=== PATIENT | male | born 1970 | race Caucasian/White ===

== ENCOUNTER 2019-03-05 16:00 | Emergency (ER) | payer OTHER, SELFPAY ==
[2019-03-05 16:10] VITALS: BP 127/81; PULSE 114; RESP 18; TEMP 36.7; O2SAT 95; BMI 24.4
--- NOTE | 2019-03-05 16:42 | PC.NURSE ---
pt refusing to put on hospital scrubs, left pt with underware. pt is anxious, agitated. pt's mom at bedside trying to put blanket on, pt yelling at mom i dont want that on me pt requesting sprite.
--- NOTE | 2019-03-05 16:51 | ED.PSYCH ---
HPI - Psych <Hawa Beltre DO - Last Filed: 03/06/19 10:52> General Chief Complaint: Psychiatric Symptoms Stated Complaint: phsychotic episode Time Seen by Provider: 03/05/19 16:44 Source: patient and family Mode of arrival: ambulatory Limitations: no limitations History of Present Illness HPI Narrative: Patient is a 48-year-old male presenting with his mother with history of bipolar and alcoholism. He was in correction 2 weeks ago and now [place] where his medication was adjusted. He was on Lamictal 125 mg however in correction they changed it to 25 mg. He was homeless for 2 weeks after he was released from correction, at which point he rode his motorcycle from there to his mother's house. He has been there for less than 1 week. He has continued to drink he has gone to multiple AA meeting did try to harm himself on by cutting his left wrist a couple weeks ago. She states that he has made threats to kill the coughs and kill her ex 's whom are in different states. She states that he is extremely depressed, and feels that he may harm himself more than he would harm anyone else. He actively denies any thoughts of suicide or homicide. Not sure why he is in the emergency department. Has no insight to his disease denies feeling depressed. He continues to drink he drinks vodka today. He had wine bottles underneath his bed at his mother's house. complaint: feels depressed and altered mental status Related Data Home Medications Medication Instructions Recorded Confirmed lamotrigine 1 tab PO DAILY 03/05/19 03/05/19 Allergies Allergy/AdvReac Type Severity Reaction Status Date / Time No Known Drug Allergies Allergy Verified 03/05/19 16:23 Review of Systems <Hawa Beltre DO - Last Filed: 03/06/19 10:52> Review of Systems ROS Unobtainable: All systems reviewed & are unremarkable except as noted in HPI and below Constitutional Denies body ache(s) and Reports poor appetite Eyes Denies blurry vision Cardiovascular Denies chest pain and Denies lightheadedness Gastrointestinal Gastrointestinal: Denies abdominal pain, Denies nausea and Denies vomiting Integumentary/Breasts Denies pruritus, Denies erythema, Denies rash and Reports wounds (healed left wrist) PFS <Hawa Beltre DO - Last Filed: 03/06/19 10:52> Medical History Bipolar 1 disorder (Acute) Social History Smoking Status: Current every day smoker Social History Smoking Status: Current every day smoker Exam <Hawa Beltre DO - Last Filed: 03/06/19 10:52> Initial Vital Signs Initial Vital Signs: Vital Signs Temperature 98.1 F 03/05/19 16:10 Pulse Rate 114 H 03/05/19 16:10 Respiratory Rate 18 03/05/19 16:10 Blood Pressure 127/81 03/05/19 16:10 Pulse Oximetry 95 03/05/19 16:10 GENERAL: Alert male only wearing his underwear all clothes have been removed from him single agitated HEENT: Head atraumatic,EOMI, pupils reactive, face symmetric, [moist] mucous membranes CARDIOVASCULAR: Regular rate and rhythm without murmurs, rubs or gallops. RESPIRATORY: Breath sounds equal bilaterally, no wheezes rales or rhonchi. ABDOMEN: Soft, nontender. Normoactive bowel sounds all 4 quadrants. No guarding or rebound. EXTREMITIES: Normal range of motion, no clubbing or edema. Neurovascularly intact NEUROLOGICAL: Alert and oriented x4. SKIN: Warm, dry, no laceration, no petechiae, no rashes or lesions. Psych Appearance: disheveled Speech and Movement: agitated and speech clear Mood: dysthymic mood Affect: anxious affect Thought Process: confabulating Judgment: poor <Dony Robbins DO - Last Filed: 03/06/19 00:47> Initial Vital Signs Initial Vital Signs: Vital Signs Temperature 98.1 F 03/05/19 16:10 Pulse Rate 114 H 03/05/19 16:10 Respiratory Rate 18 03/05/19 16:10 Blood Pressure 127/81 03/05/19 16:10 Pulse Oximetry 95 03/05/19 16:10 Course <Hawa Beltre DO - Last Filed: 03/06/19 10:52> Orders Ordered: Discontinued Medications Haloperidol (Haldol) 5 mg IM NOW ONE Stop: 03/05/19 17:09 Last Admin: 03/05/19 17:14 Dose: 5 mg Lorazepam (Ativan) 1 mg PO NOW ONE Stop: 03/05/19 20:27 Last Admin: 03/05/19 20:36 Dose: 1 mg Vital Signs - 8 hr 03/05/19 18:10 03/05/19 23:25 Temperature 97 F L Pulse Rate 99 H 82 Respiratory Rate 15 20 Blood Pressure [Left Arm] 111/62 127/46 L Pulse Oximetry 100 <Dony Robbins DO - Last Filed: 03/06/19 00:47> Orders Ordered: Discontinued Medications Haloperidol (Haldol) 5 mg IM NOW ONE Stop: 03/05/19 17:09 Last Admin: 03/05/19 17:14 Dose: 5 mg Lorazepam (Ativan) 1 mg PO NOW ONE Stop: 03/05/19 20:27 Last Admin: 03/05/19 20:36 Dose: 1 mg Vital Signs - 8 hr 03/05/19 18:10 03/05/19 23:25 Temperature 97 F L Pulse Rate 99 H 82 Respiratory Rate 15 20 Blood Pressure [Left Arm] 111/62 127/46 L Pulse Oximetry 100 MDM - Psych <Hawa Beltre DO - Last Filed: 03/06/19 10:52> Lab Data Attestation: I reviewed the patient's lab results. Result diagrams: 03/05/19 15:26 03/05/19 15:26 Lab Results 03/05/19 03/05/19 03/05/19 Range/Units 15:26 15:26 15:26 WBC 6.0 (4.5-11.0) X10^3/uL RBC 4.44 L (4.5-5.9) X10^6/uL Hgb 14.3 (13.5-17.5) g/dL Hct 42.8 (41-53) % MCV 96.5 (80-100) fL MCH 32.3 (26-34) PG MCHC 33.4 (30-36) % RDW 14.7 (11.6-14.8) % Plt Count 456 H (150-400) X10^3/uL Neut % (Auto) 56.3 (50-75) % Lymph % (Auto) 32.3 (25-40) % Giles % (Auto) 7.2 (3-14) % Eos % (Auto) 2.8 (2-4) % Baso % (Auto) 1.4 (0-2) % Neut # (Auto) 3400 (0513-2622) /uL Lymph # (Auto) 2000 (3503-0174) /uL Giles # (Auto) 400 (0-900) /uL Eos # (Auto) 200 (0-450) /uL Baso # (Auto) 100 (0-100) /uL Sodium 142 (137-145) mmol/L Potassium 3.8 (3.4-5.1) mmol/L Chloride 106 (98-107) mmol/L Carbon Dioxide 25 (22-32) mmol/L BUN 16 (9-20) mg/dL Creatinine 0.90 (0.66-1.25) mg/dL Estimated GFR > 60.0 (>60) mL/min BUN/Creatinine Ratio 17.8 (6-22) Glucose 90 (70-100) mg/dL Calcium 9.1 (8.4-10.2) mg/dL Total Bilirubin 0.1 L (0.2-1.3) mg/dL AST 36 (17-59) IU/L ALT 53 (21-72) IU/L Alkaline Phosphatase 100 (38-126) U/L Total Protein 7.1 (6.3-8.2) g/dL Albumin 4.2 (3.5-5.0) g/dL Globulin 2.9 (1.7-4.1) g/dL Albumin/Globulin Ratio 1.4 (1.0-2.8) TSH 1.60 (0.47-4.68) uIU/mL Urine Color Urine Appearance Urine pH (4.5-8.0) Ur Specific [place] (1.000-1.035) Urine Protein (Negative) Urine Glucose (UA) (Negative) g/dL Urine Ketones (NEGATIVE) Urine Occult Blood (Negative) Urine Nitrate (Negative) Urine Bilirubin (NEGATIVE) Urine Urobilinogen (0.2) E.U./dL Ur Leukocyte Esterase (NEGATIVE) Urine Opiates Screen (Negative) Ur Oxycodone Screen (Negative) Urine Methadone Screen (Negative) Ur Barbiturates Screen (Negative) U Tricyclic Antidepress (Negative) Ur Phencyclidine Scrn (Negative) Ur Amphetamines Screen (Negative) U Methamphetamines Scrn (Negative) Ur MDMA Scrn (Ecstasy) (Negative) U Benzodiazepines Scrn (Negative) Urine Cocaine Screen (Negative) U Marijuana (THC) Screen (Negative) Ethyl Alcohol 122 mg/dL 03/05/19 03/05/19 03/05/19 Range/Units 16:35 16:35 18:54 WBC (4.5-11.0) X10^3/uL RBC (4.5-5.9) X10^6/uL Hgb (13.5-17.5) g/dL Hct (41-53) % MCV (80-100) fL MCH (26-34) PG MCHC (30-36) % RDW (11.6-14.8) % Plt Count (150-400) X10^3/uL Neut % (Auto) (50-75) % Lymph % (Auto) (25-40) % Giles % (Auto) (3-14) % Eos % (Auto) (2-4) % Baso % (Auto) (0-2) % Neut # (Auto) (6233-8496) /uL Lymph # (Auto) (7050-0171) /uL Giles # (Auto) (0-900) /uL Eos # (Auto) (0-450) /uL Baso # (Auto) (0-100) /uL Sodium (137-145) mmol/L Potassium (3.4-5.1) mmol/L Chloride (98-107) mmol/L Carbon Dioxide (22-32) mmol/L BUN (9-20) mg/dL Creatinine (0.66-1.25) mg/dL Estimated GFR (>60) mL/min BUN/Creatinine Ratio (6-22) Glucose (70-100) mg/dL Calcium (8.4-10.2) mg/dL Total Bilirubin (0.2-1.3) mg/dL AST (17-59) IU/L ALT (21-72) IU/L Alkaline Phosphatase (38-126) U/L Total Protein (6.3-8.2) g/dL Albumin (3.5-5.0) g/dL Globulin (1.7-4.1) g/dL Albumin/Globulin Ratio (1.0-2.8) TSH (0.47-4.68) uIU/mL Urine Color Yellow Urine Appearance Clear Urine pH 5.0 (4.5-8.0) Ur Specific [place] >=1.030 H (1.000-1.035) Urine Protein Negative (Negative) Urine Glucose (UA) Negative (Negative) g/dL Urine Ketones Negative (NEGATIVE) Urine Occult Blood Trace-intact (Negative) Urine Nitrate Negative (Negative) Urine Bilirubin Negative (NEGATIVE) Urine Urobilinogen 0.2 (0.2) E.U./dL Ur Leukocyte Esterase Negative (NEGATIVE) Urine Opiates Screen Negative (Negative) Ur Oxycodone Screen Negative (Negative) Urine Methadone Screen Negative (Negative) Ur Barbiturates Screen Negative (Negative) U Tricyclic Antidepress Negative (Negative) Ur Phencyclidine Scrn Negative (Negative) Ur Amphetamines Screen Negative (Negative) U Methamphetamines Scrn Negative (Negative) Ur MDMA Scrn (Ecstasy) Negative (Negative) U Benzodiazepines Scrn Negative (Negative) Urine Cocaine Screen Negative (Negative) U Marijuana (THC) Screen Positive H (Negative) Ethyl Alcohol 67 mg/dL MDM Narrative Medical decision making narrative: Patient immediately asking his mother have he can have a chimmey chonga and go home. His mother has voiced grave concern for him feels like he is depressed. 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 At this time I feel like patient is involuntary not able to make decisions on his own. <Dony Robbins, DO - Last Filed: 03/06/19 00:47> Lab Data Lab Results 03/05/19 03/05/19 03/05/19 Range/Units 15:26 15:26 15:26 WBC 6.0 (4.5-11.0) X10^3/uL RBC 4.44 L (4.5-5.9) X10^6/uL Hgb 14.3 (13.5-17.5) g/dL Hct 42.8 (41-53) % MCV 96.5 (80-100) fL MCH 32.3 (26-34) PG MCHC 33.4 (30-36) % RDW 14.7 (11.6-14.8) % Plt Count 456 H (150-400) X10^3/uL Neut % (Auto) 56.3 (50-75) % Lymph % (Auto) 32.3 (25-40) % Giles % (Auto) 7.2 (3-14) % Eos % (Auto) 2.8 (2-4) % Baso % (Auto) 1.4 (0-2) % Neut # (Auto) 3400 (5019-2713) /uL Lymph # (Auto) 2000 (6663-0618) /uL Giles # (Auto) 400 (0-900) /uL Eos # (Auto) 200 (0-450) /uL Baso # (Auto) 100 (0-100) /uL Sodium 142 (137-145) mmol/L Potassium 3.8 (3.4-5.1) mmol/L Chloride 106 (98-107) mmol/L Carbon Dioxide 25 (22-32) mmol/L BUN 16 (9-20) mg/dL Creatinine 0.90 (0.66-1.25) mg/dL Estimated GFR > 60.0 (>60) mL/min BUN/Creatinine Ratio 17.8 (6-22) Glucose 90 (70-100) mg/dL Calcium 9.1 (8.4-10.2) mg/dL Total Bilirubin 0.1 L (0.2-1.3) mg/dL AST 36 (17-59) IU/L ALT 53 (21-72) IU/L Alkaline Phosphatase 100 (38-126) U/L Total Protein 7.1 (6.3-8.2) g/dL Albumin 4.2 (3.5-5.0) g/dL Globulin 2.9 (1.7-4.1) g/dL Albumin/Globulin Ratio 1.4 (1.0-2.8) TSH 1.60 (0.47-4.68) uIU/mL Urine Color Urine Appearance Urine pH (4.5-8.0) Ur Specific [place] (1.000-1.035) Urine Protein (Negative) Urine Glucose (UA) (Negative) g/dL Urine Ketones (NEGATIVE) Urine Occult Blood (Negative) Urine Nitrate (Negative) Urine Bilirubin (NEGATIVE) Urine Urobilinogen (0.2) E.U./dL Ur Leukocyte Esterase (NEGATIVE) Urine Opiates Screen (Negative) Ur Oxycodone Screen (Negative) Urine Methadone Screen (Negative) Ur Barbiturates Screen (Negative) U Tricyclic Antidepress (Negative) Ur Phencyclidine Scrn (Negative) Ur Amphetamines Screen (Negative) U Methamphetamines Scrn (Negative) Ur MDMA Scrn (Ecstasy) (Negative) U Benzodiazepines Scrn (Negative) Urine Cocaine Screen (Negative) U Marijuana (THC) Screen (Negative) Ethyl Alcohol 122 mg/dL 03/05/19 03/05/19 03/05/19 Range/Units 16:35 16:35 18:54 WBC (4.5-11.0) X10^3/uL RBC (4.5-5.9) X10^6/uL Hgb (13.5-17.5) g/dL Hct (41-53) % MCV (80-100) fL MCH (26-34) PG MCHC (30-36) % RDW (11.6-14.8) % Plt Count (150-400) X10^3/uL Neut % (Auto) (50-75) % Lymph % (Auto) (25-40) % Giles % (Auto) (3-14) % Eos % (Auto) (2-4) % Baso % (Auto) (0-2) % Neut # (Auto) (0596-7049) /uL Lymph # (Auto) (8066-3997) /uL Giles # (Auto) (0-900) /uL Eos # (Auto) (0-450) /uL Baso # (Auto) (0-100) /uL Sodium (137-145) mmol/L Potassium (3.4-5.1) mmol/L Chloride (98-107) mmol/L Carbon Dioxide (22-32) mmol/L BUN (9-20) mg/dL Creatinine (0.66-1.25) mg/dL Estimated GFR (>60) mL/min BUN/Creatinine Ratio (6-22) Glucose (70-100) mg/dL Calcium (8.4-10.2) mg/dL Total Bilirubin (0.2-1.3) mg/dL AST (17-59) IU/L ALT (21-72) IU/L Alkaline Phosphatase (38-126) U/L Total Protein (6.3-8.2) g/dL Albumin (3.5-5.0) g/dL Globulin (1.7-4.1) g/dL Albumin/Globulin Ratio (1.0-2.8) TSH (0.47-4.68) uIU/mL Urine Color Yellow Urine Appearance Clear Urine pH 5.0 (4.5-8.0) Ur Specific [place] >=1.030 H (1.000-1.035) Urine Protein Negative (Negative) Urine Glucose (UA) Negative (Negative) g/dL Urine Ketones Negative (NEGATIVE) Urine Occult Blood Trace-intact (Negative) Urine Nitrate Negative (Negative) Urine Bilirubin Negative (NEGATIVE) Urine Urobilinogen 0.2 (0.2) E.U./dL Ur Leukocyte Esterase Negative (NEGATIVE) Urine Opiates Screen Negative (Negative) Ur Oxycodone Screen Negative (Negative) Urine Methadone Screen Negative (Negative) Ur Barbiturates Screen Negative (Negative) U Tricyclic Antidepress Negative (Negative) Ur Phencyclidine Scrn Negative (Negative) Ur Amphetamines Screen Negative (Negative) U Methamphetamines Scrn Negative (Negative) Ur MDMA Scrn (Ecstasy) Negative (Negative) U Benzodiazepines Scrn Negative (Negative) Urine Cocaine Screen Negative (Negative) U Marijuana (THC) Screen Positive H (Negative) Ethyl Alcohol 67 mg/dL MDM Narrative Medical decision making narrative: Received turned over from day provider. I performed my own history and physical exam and also reviewed the patient's note and lab reports. He is medically cleared. His alcohol level is less than the legal limit. He has been calm here in the emergency department however a 1 point became a little anxious so was given Ativan. Upon my evaluation the patient was alert and oriented x3. he stated that he was not currently suicidal. The patient was evaluated by PCR and was determined to not have the findings necessary for a CHEPE. The DCR stated that she was going to contact the patient's mother however the DCR left without final confirmation of this. The note stated that we were to give the patient the a phone number which was done. We called to confirm that a [facility] appointment was scheduled for tomorrow which it was. The patient was also given resources regarding mental health counseling. Mother came to the emergency department to pick the patient up. Discharge Plan Departure Patient Disposition: Home Clinical Impression: Alcohol intoxication Qualifiers: Complication of substance-induced condition: with unspecified complication Qualified Code(s): F10.929 - Alcohol use, unspecified with intoxication, unspecified Discharge Date/Time: 03/06/19 01:01 Interventions: ED Discharge Assessment Last Done: 03/06/19 00:57 Instructions: Alcohol Use Disorder, DI for Suicidal Ideation-Adult Activity Restrictions/Additional Instructions: No driving for the next 24 hours or in the future if you partake in intoxicating substances. You can call the [facility] at [phone] if you find yourself in need of help. He can also return to the emergency department at any time. You will be receiving phone call from what we call the [facility] team on Wednesday to follow up and also to establish a same-day appointment. Please use the other and resources you were given as needed. Contact her primary care doctor for follow-up. Prescriptions: No Action lamotrigine 100 mg Tablet 1 tab PO DAILY RF: 0
[2019-03-05] MEDS: HALOPERIDOL 5 MG/ML VIAL IM (17:14)
--- NOTE | 2019-03-05 17:14 | ED_ITS ---
HPI - Psych <Hawa Beltre DO - Last Filed: 03/06/19 10:52> General Chief Complaint: Psychiatric Symptoms Stated Complaint: phsychotic episode Time Seen by Provider: 03/05/19 16:44 Source: patient and family Mode of arrival: ambulatory Limitations: no limitations History of Present Illness HPI Narrative: Patient is a 48-year-old male presenting with his mother with history of bipolar and alcoholism. He was in retirement 2 weeks ago and now [place] where his medication was adjusted. He was on Lamictal 125 mg however in retirement they changed it to 25 mg. He was homeless for 2 weeks after he was released from retirement, at which point he rode his motorcycle from there to his mother's house. He has been there for less than 1 week. He has continued to drink he has gone to multiple AA meeting did try to harm himself on by cutting his left wrist a couple weeks ago. She states that he has made threats to kill the coughs and kill her ex 's whom are in different states. She states that he is extremely depressed, and feels that he may harm himself more than he would harm anyone else. He actively denies any thoughts of suicide or homicide. Not sure why he is in the emergency department. Has no insight to his disease denies feeling depressed. He continues to drink he drinks vodka today. He had wine bottles underneath his bed at his mother's house. complaint: feels depressed and altered mental status Related Data Home Medications Medication Instructions Recorded Confirmed lamotrigine 1 tab PO DAILY 03/05/19 03/05/19 Allergies Allergy/AdvReac Type Severity Reaction Status Date / Time No Known Drug Allergies Allergy Verified 03/05/19 16:23 Review of Systems <Hawa Beltre DO - Last Filed: 03/06/19 10:52> Review of Systems ROS Unobtainable: All systems reviewed & are unremarkable except as noted in HPI and below Constitutional Denies body ache(s) and Reports poor appetite Eyes Denies blurry vision Cardiovascular Denies chest pain and Denies lightheadedness Gastrointestinal Gastrointestinal: Denies abdominal pain, Denies nausea and Denies vomiting Integumentary/Breasts Denies pruritus, Denies erythema, Denies rash and Reports wounds (healed left wrist) PFS <Hawa Beltre DO - Last Filed: 03/06/19 10:52> Medical History Bipolar 1 disorder (Acute) Social History Smoking Status: Current every day smoker Social History Smoking Status: Current every day smoker Exam <Hawa Beltre DO - Last Filed: 03/06/19 10:52> Initial Vital Signs Initial Vital Signs: Vital Signs Temperature 98.1 F 03/05/19 16:10 Pulse Rate 114 H 03/05/19 16:10 Respiratory Rate 18 03/05/19 16:10 Blood Pressure 127/81 03/05/19 16:10 Pulse Oximetry 95 03/05/19 16:10 GENERAL: Alert male only wearing his underwear all clothes have been removed from him single agitated HEENT: Head atraumatic,EOMI, pupils reactive, face symmetric, [moist] mucous membranes CARDIOVASCULAR: Regular rate and rhythm without murmurs, rubs or gallops. RESPIRATORY: Breath sounds equal bilaterally, no wheezes rales or rhonchi. ABDOMEN: Soft, nontender. Normoactive bowel sounds all 4 quadrants. No guarding or rebound. EXTREMITIES: Normal range of motion, no clubbing or edema. Neurovascularly intact NEUROLOGICAL: Alert and oriented x4. SKIN: Warm, dry, no laceration, no petechiae, no rashes or lesions. Psych Appearance: disheveled Speech and Movement: agitated and speech clear Mood: dysthymic mood Affect: anxious affect Thought Process: confabulating Judgment: poor <Dony Robbins DO - Last Filed: 03/06/19 00:47> Initial Vital Signs Initial Vital Signs: Vital Signs Temperature 98.1 F 03/05/19 16:10 Pulse Rate 114 H 03/05/19 16:10 Respiratory Rate 18 03/05/19 16:10 Blood Pressure 127/81 03/05/19 16:10 Pulse Oximetry 95 03/05/19 16:10 Course <Hawa Beltre DO - Last Filed: 03/06/19 10:52> Orders Ordered: Discontinued Medications Haloperidol (Haldol) 5 mg IM NOW ONE Stop: 03/05/19 17:09 Last Admin: 03/05/19 17:14 Dose: 5 mg Lorazepam (Ativan) 1 mg PO NOW ONE Stop: 03/05/19 20:27 Last Admin: 03/05/19 20:36 Dose: 1 mg Vital Signs - 8 hr 03/05/19 18:10 03/05/19 23:25 Temperature 97 F L Pulse Rate 99 H 82 Respiratory Rate 15 20 Blood Pressure [Left Arm] 111/62 127/46 L Pulse Oximetry 100 <Dony Robbins DO - Last Filed: 03/06/19 00:47> Orders Ordered: Discontinued Medications Haloperidol (Haldol) 5 mg IM NOW ONE Stop: 03/05/19 17:09 Last Admin: 03/05/19 17:14 Dose: 5 mg Lorazepam (Ativan) 1 mg PO NOW ONE Stop: 03/05/19 20:27 Last Admin: 03/05/19 20:36 Dose: 1 mg Vital Signs - 8 hr 03/05/19 18:10 03/05/19 23:25 Temperature 97 F L Pulse Rate 99 H 82 Respiratory Rate 15 20 Blood Pressure [Left Arm] 111/62 127/46 L Pulse Oximetry 100 MDM - Psych <Hawa Beltre DO - Last Filed: 03/06/19 10:52> Lab Data Attestation: I reviewed the patient's lab results. Result diagrams: 03/05/19 15:26 03/05/19 15:26 Lab Results 03/05/19 03/05/19 03/05/19 Range/Units 15:26 15:26 15:26 WBC 6.0 (4.5-11.0) X10^3/uL RBC 4.44 L (4.5-5.9) X10^6/uL Hgb 14.3 (13.5-17.5) g/dL Hct 42.8 (41-53) % MCV 96.5 (80-100) fL MCH 32.3 (26-34) PG MCHC 33.4 (30-36) % RDW 14.7 (11.6-14.8) % Plt Count 456 H (150-400) X10^3/uL Neut % (Auto) 56.3 (50-75) % Lymph % (Auto) 32.3 (25-40) % Hart % (Auto) 7.2 (3-14) % Eos % (Auto) 2.8 (2-4) % Baso % (Auto) 1.4 (0-2) % Neut # (Auto) 3400 (8803-1754) /uL Lymph # (Auto) 2000 (5524-9301) /uL Hart # (Auto) 400 (0-900) /uL Eos # (Auto) 200 (0-450) /uL Baso # (Auto) 100 (0-100) /uL Sodium 142 (137-145) mmol/L Potassium 3.8 (3.4-5.1) mmol/L Chloride 106 (98-107) mmol/L Carbon Dioxide 25 (22-32) mmol/L BUN 16 (9-20) mg/dL Creatinine 0.90 (0.66-1.25) mg/dL Estimated GFR > 60.0 (>60) mL/min BUN/Creatinine Ratio 17.8 (6-22) Glucose 90 (70-100) mg/dL Calcium 9.1 (8.4-10.2) mg/dL Total Bilirubin 0.1 L (0.2-1.3) mg/dL AST 36 (17-59) IU/L ALT 53 (21-72) IU/L Alkaline Phosphatase 100 (38-126) U/L Total Protein 7.1 (6.3-8.2) g/dL Albumin 4.2 (3.5-5.0) g/dL Globulin 2.9 (1.7-4.1) g/dL Albumin/Globulin Ratio 1.4 (1.0-2.8) TSH 1.60 (0.47-4.68) uIU/mL Urine Color Urine Appearance Urine pH (4.5-8.0) Ur Specific [place] (1.000-1.035) Urine Protein (Negative) Urine Glucose (UA) (Negative) g/dL Urine Ketones (NEGATIVE) Urine Occult Blood (Negative) Urine Nitrate (Negative) Urine Bilirubin (NEGATIVE) Urine Urobilinogen (0.2) E.U./dL Ur Leukocyte Esterase (NEGATIVE) Urine Opiates Screen (Negative) Ur Oxycodone Screen (Negative) Urine Methadone Screen (Negative) Ur Barbiturates Screen (Negative) U Tricyclic Antidepress (Negative) Ur Phencyclidine Scrn (Negative) Ur Amphetamines Screen (Negative) U Methamphetamines Scrn (Negative) Ur MDMA Scrn (Ecstasy) (Negative) U Benzodiazepines Scrn (Negative) Urine Cocaine Screen (Negative) U Marijuana (THC) Screen (Negative) Ethyl Alcohol 122 mg/dL 03/05/19 03/05/19 03/05/19 Range/Units 16:35 16:35 18:54 WBC (4.5-11.0) X10^3/uL RBC (4.5-5.9) X10^6/uL Hgb (13.5-17.5) g/dL Hct (41-53) % MCV (80-100) fL MCH (26-34) PG MCHC (30-36) % RDW (11.6-14.8) % Plt Count (150-400) X10^3/uL Neut % (Auto) (50-75) % Lymph % (Auto) (25-40) % Hart % (Auto) (3-14) % Eos % (Auto) (2-4) % Baso % (Auto) (0-2) % Neut # (Auto) (4200-1383) /uL Lymph # (Auto) (4758-3818) /uL Hart # (Auto) (0-900) /uL Eos # (Auto) (0-450) /uL Baso # (Auto) (0-100) /uL Sodium (137-145) mmol/L Potassium (3.4-5.1) mmol/L Chloride (98-107) mmol/L Carbon Dioxide (22-32) mmol/L BUN (9-20) mg/dL Creatinine (0.66-1.25) mg/dL Estimated GFR (>60) mL/min BUN/Creatinine Ratio (6-22) Glucose (70-100) mg/dL Calcium (8.4-10.2) mg/dL Total Bilirubin (0.2-1.3) mg/dL AST (17-59) IU/L ALT (21-72) IU/L Alkaline Phosphatase (38-126) U/L Total Protein (6.3-8.2) g/dL Albumin (3.5-5.0) g/dL Globulin (1.7-4.1) g/dL Albumin/Globulin Ratio (1.0-2.8) TSH (0.47-4.68) uIU/mL Urine Color Yellow Urine Appearance Clear Urine pH 5.0 (4.5-8.0) Ur Specific [place] >=1.030 H (1.000-1.035) Urine Protein Negative (Negative) Urine Glucose (UA) Negative (Negative) g/dL Urine Ketones Negative (NEGATIVE) Urine Occult Blood Trace-intact (Negative) Urine Nitrate Negative (Negative) Urine Bilirubin Negative (NEGATIVE) Urine Urobilinogen 0.2 (0.2) E.U./dL Ur Leukocyte Esterase Negative (NEGATIVE) Urine Opiates Screen Negative (Negative) Ur Oxycodone Screen Negative (Negative) Urine Methadone Screen Negative (Negative) Ur Barbiturates Screen Negative (Negative) U Tricyclic Antidepress Negative (Negative) Ur Phencyclidine Scrn Negative (Negative) Ur Amphetamines Screen Negative (Negative) U Methamphetamines Scrn Negative (Negative) Ur MDMA Scrn (Ecstasy) Negative (Negative) U Benzodiazepines Scrn Negative (Negative) Urine Cocaine Screen Negative (Negative) U Marijuana (THC) Screen Positive H (Negative) Ethyl Alcohol 67 mg/dL MDM Narrative Medical decision making narrative: Patient immediately asking his mother have he can have a chimmey chonga and go home. His mother has voiced grave concern for him feels like he is depressed. Patient signed out to police shift commander provider for further evaluation and treatment. At this time I feel like patient is involuntary not able to make decisions on his own. <Dony Robbins, DO - Last Filed: 03/06/19 00:47> Lab Data Lab Results 03/05/19 03/05/19 03/05/19 Range/Units 15:26 15:26 15:26 WBC 6.0 (4.5-11.0) X10^3/uL RBC 4.44 L (4.5-5.9) X10^6/uL Hgb 14.3 (13.5-17.5) g/dL Hct 42.8 (41-53) % MCV 96.5 (80-100) fL MCH 32.3 (26-34) PG MCHC 33.4 (30-36) % RDW 14.7 (11.6-14.8) % Plt Count 456 H (150-400) X10^3/uL Neut % (Auto) 56.3 (50-75) % Lymph % (Auto) 32.3 (25-40) % Hart % (Auto) 7.2 (3-14) % Eos % (Auto) 2.8 (2-4) % Baso % (Auto) 1.4 (0-2) % Neut # (Auto) 3400 (0327-3363) /uL Lymph # (Auto) 2000 (3232-3947) /uL Hart # (Auto) 400 (0-900) /uL Eos # (Auto) 200 (0-450) /uL Baso # (Auto) 100 (0-100) /uL Sodium 142 (137-145) mmol/L Potassium 3.8 (3.4-5.1) mmol/L Chloride 106 (98-107) mmol/L Carbon Dioxide 25 (22-32) mmol/L BUN 16 (9-20) mg/dL Creatinine 0.90 (0.66-1.25) mg/dL Estimated GFR > 60.0 (>60) mL/min BUN/Creatinine Ratio 17.8 (6-22) Glucose 90 (70-100) mg/dL Calcium 9.1 (8.4-10.2) mg/dL Total Bilirubin 0.1 L (0.2-1.3) mg/dL AST 36 (17-59) IU/L ALT 53 (21-72) IU/L Alkaline Phosphatase 100 (38-126) U/L Total Protein 7.1 (6.3-8.2) g/dL Albumin 4.2 (3.5-5.0) g/dL Globulin 2.9 (1.7-4.1) g/dL Albumin/Globulin Ratio 1.4 (1.0-2.8) TSH 1.60 (0.47-4.68) uIU/mL Urine Color Urine Appearance Urine pH (4.5-8.0) Ur Specific [place] (1.000-1.035) Urine Protein (Negative) Urine Glucose (UA) (Negative) g/dL Urine Ketones (NEGATIVE) Urine Occult Blood (Negative) Urine Nitrate (Negative) Urine Bilirubin (NEGATIVE) Urine Urobilinogen (0.2) E.U./dL Ur Leukocyte Esterase (NEGATIVE) Urine Opiates Screen (Negative) Ur Oxycodone Screen (Negative) Urine Methadone Screen (Negative) Ur Barbiturates Screen (Negative) U Tricyclic Antidepress (Negative) Ur Phencyclidine Scrn (Negative) Ur Amphetamines Screen (Negative) U Methamphetamines Scrn (Negative) Ur MDMA Scrn (Ecstasy) (Negative) U Benzodiazepines Scrn (Negative) Urine Cocaine Screen (Negative) U Marijuana (THC) Screen (Negative) Ethyl Alcohol 122 mg/dL 03/05/19 03/05/19 03/05/19 Range/Units 16:35 16:35 18:54 WBC (4.5-11.0) X10^3/uL RBC (4.5-5.9) X10^6/uL Hgb (13.5-17.5) g/dL Hct (41-53) % MCV (80-100) fL MCH (26-34) PG MCHC (30-36) % RDW (11.6-14.8) % Plt Count (150-400) X10^3/uL Neut % (Auto) (50-75) % Lymph % (Auto) (25-40) % Hart % (Auto) (3-14) % Eos % (Auto) (2-4) % Baso % (Auto) (0-2) % Neut # (Auto) (8395-7211) /uL Lymph # (Auto) (3878-2157) /uL Hart # (Auto) (0-900) /uL Eos # (Auto) (0-450) /uL Baso # (Auto) (0-100) /uL Sodium (137-145) mmol/L Potassium (3.4-5.1) mmol/L Chloride (98-107) mmol/L Carbon Dioxide (22-32) mmol/L BUN (9-20) mg/dL Creatinine (0.66-1.25) mg/dL Estimated GFR (>60) mL/min BUN/Creatinine Ratio (6-22) Glucose (70-100) mg/dL Calcium (8.4-10.2) mg/dL Total Bilirubin (0.2-1.3) mg/dL AST (17-59) IU/L ALT (21-72) IU/L Alkaline Phosphatase (38-126) U/L Total Protein (6.3-8.2) g/dL Albumin (3.5-5.0) g/dL Globulin (1.7-4.1) g/dL Albumin/Globulin Ratio (1.0-2.8) TSH (0.47-4.68) uIU/mL Urine Color Yellow Urine Appearance Clear Urine pH 5.0 (4.5-8.0) Ur Specific [place] >=1.030 H (1.000-1.035) Urine Protein Negative (Negative) Urine Glucose (UA) Negative (Negative) g/dL Urine Ketones Negative (NEGATIVE) Urine Occult Blood Trace-intact (Negative) Urine Nitrate Negative (Negative) Urine Bilirubin Negative (NEGATIVE) Urine Urobilinogen 0.2 (0.2) E.U./dL Ur Leukocyte Esterase Negative (NEGATIVE) Urine Opiates Screen Negative (Negative) Ur Oxycodone Screen Negative (Negative) Urine Methadone Screen Negative (Negative) Ur Barbiturates Screen Negative (Negative) U Tricyclic Antidepress Negative (Negative) Ur Phencyclidine Scrn Negative (Negative) Ur Amphetamines Screen Negative (Negative) U Methamphetamines Scrn Negative (Negative) Ur MDMA Scrn (Ecstasy) Negative (Negative) U Benzodiazepines Scrn Negative (Negative) Urine Cocaine Screen Negative (Negative) U Marijuana (THC) Screen Positive H (Negative) Ethyl Alcohol 67 mg/dL MDM Narrative Medical decision making narrative: Received turned over from day provider. I performed my own history and physical exam and also reviewed the patient's note and lab reports. He is medically cleared. His alcohol level is less than the legal limit. He has been calm here in the emergency department however a 1 point became a little anxious so was given Ativan. Upon my evaluation the patient was alert and oriented x3. he stated that he was not currently suicidal. The patient was evaluated by PCR and was determined to not have the findings necessary for a CHEPE. The DCR stated that she was going to contact the patient's mother however the DCR left without final confirmation of this. The note stated that we were to give the patient the a phone number which was done. We called to confirm that a [facility] appointment was scheduled for tomorrow which it was. The patient was also given resources regarding mental health counseling. Mother came to the emergency department to pick the patient up. Discharge Plan Departure Patient Disposition: Home Clinical Impression: Alcohol intoxication Qualifiers: Complication of substance-induced condition: with unspecified complication Qualified Code(s): F10.929 - Alcohol use, unspecified with intoxication, un specified Discharge Date/Time: 03/06/19 01:01 Interventions: ED Discharge Assessment Last Done: 03/06/19 00:57 Instructions: Alcohol Use Disorder, DI for Suicidal Ideation-Adult Activity Restrictions/Additional Instructions: No driving for the next 24 hours or in the future if you partake in intoxicating substances. You can call the [facility] at [phone] if you find yourself in need of help. He can also return to the emergency department at any time. You will be receiving phone call from what we call the CPIT team on Wednesday to follow up and also to establish a same-day appointment. Please use the other and resources you were given as needed. Contact her primary care doctor for follow-up. Prescriptions: No Action lamotrigine 100 mg Tablet 1 tab PO DAILY RF: 0
--- NOTE | 2019-03-05 17:24 | PC.NURSE ---
pt in bed eating pudding and drinking radha baldemar. Door is open to hallway and lights are on.
[2019-03-05 17:42] LABS: Add Manual Diff / Slide Review NO; Basophils Absolute Auto 100 /uL (0-100); Basophils Percent Auto 1.4 % (0-2); Eosinophils Absolute Auto 200 /uL (0-450); Eosinophils Percent Auto 2.8 % (2-4); Hematocrit 42.8 % (41-53); Hemoglobin 14.3 g/dL (13.5-17.5); Lymphocytes Absolute Auto 2000 /uL (1100-4500); Lymphocytes Percent Auto 32.3 % (25-40); Mean Corpuscular HGB Conc 33.4 % (30-36); Mean Corpuscular Hemoglobin 32.3 PG (26-34); Mean Corpuscular Volume 96.5 fL (80-100); Monocytes Absolute Auto 400 /uL (0-900); Monocytes Percent Auto 7.2 % (3-14); Neutrophils Absolute Auto 3400 /uL (1500-7000); Neutrophils Percent Auto 56.3 % (50-75); Platelet Count 456 X10^3/uL (150-400); Red Blood Cell Count 4.44 X10^6/uL (4.5-5.9); Red Cell Distribution Width 14.7 % (11.6-14.8)
--- NOTE | 2019-03-05 17:44 | PC.NURSE ---
pt got up and put his paper scrubs on then laid down on the bed. Door is open to the hallway and lights are on in room.
[2019-03-05 17:47] LABS: Alanine Aminotransferase 53 IU/L (21-72); Albumin 4.2 g/dL (3.5-5.0); Albumin Globulin Ratio 1.4 (1.0-2.8); Alkaline Phosphatase 100 U/L (38-126); Aspartate Aminotransferase 36 IU/L (17-59); BUN Creatinine Ratio 17.8 (6-22); Bilirubin Total 0.1 mg/dL (0.2-1.3); Blood Urea Nitrogen 16 mg/dL (9-20); Calcium 9.1 mg/dL (8.4-10.2); Carbon Dioxide 25 mmol/L (22-32); Chloride 106 mmol/L (98-107); Estimated Glomerular Filt Rate > 60.0 mL/min (>60); Ethanol (ETOH) 122 mg/dL; Globulin 2.9 g/dL (1.7-4.1); Glucose 90 mg/dL (70-100); HEMOLYSIS < 15 (0-50); Potassium 3.8 mmol/L (3.4-5.1); Sodium 142 mmol/L (137-145); Total Protein 7.1 g/dL (6.3-8.2)
[2019-03-05 17:58] LABS: Urine Amphetamines Negative (Negative); Urine Cocaine Negative (Negative); Urine Methamphetamines Negative (Negative); Urine Morphine/Opi cutoff 2000 Negative (Negative); Urine Tetrahydrocannabinol Positive (Negative)
[2019-03-05 17:59] LABS: Urine Barbiturates Negative (Negative); Urine Benzodiazepines Negative (Negative); Urine MDMA Negative (Negative); Urine Methadone Negative (Negative); Urine Oxycodone Negative (Negative); Urine Phencyclidine Negative (Negative); Urine Tricyclic Antidepressant Negative (Negative)
--- NOTE | 2019-03-05 18:02 | PC.NURSE ---
Gave pt ice water in a paper cup, hes sitting up in bed drinking the water. Door is open to [place] and lights are on.
[2019-03-05 18:10] VITALS: BP 111/62; PULSE 99; RESP 15; O2SAT 100
--- NOTE | 2019-03-05 18:21 | PC.NURSE ---
Pt requested more ice water and got his vital signs.
--- NOTE | 2019-03-05 18:30 | PC.NURSE ---
pt resting on bed, door is open and lights are on
[2019-03-05 18:35] LABS: Appearance Urine UA CLEAR; Bilirubin Urine UA NEGATIVE (NEGATIVE); Color Urine UA YELLOW; Glucose Urine UA NEGATIVE (Negative); Ketones Urine UA NEGATIVE (NEGATIVE); Leukocyte Esterase Urine UA NEGATIVE (NEGATIVE); Nitrite Urine UA NEGATIVE (Negative); Occult Blood Urine UA TRACE-INTACT (Negative); Protein Urine UA NEGATIVE (Negative); Specific Gravity Urine UA >=1.030 (1.000-1.035); Urobilinogen Urine UA 0.2 E.U./dL (0.2)
--- NOTE | 2019-03-05 18:46 | PC.NURSE ---
talked with pt. Door is open to [place] and lights are on.
--- NOTE | 2019-03-05 19:00 | PC.NURSE ---
Nurse gave pt sandwiches, cookie, cheese and radha baldemar. pt is sitting up in bed eating. Door is open to hallway and lights are on.
[2019-03-05 19:10] LABS: Ethanol (ETOH) 67 mg/dL
--- NOTE | 2019-03-05 19:15 | PC.NURSE ---
pt laying on bed, door is open and lights are on
--- NOTE | 2019-03-05 19:35 | PC.NURSE ---
Pt resting and cooperative and compliant.
--- NOTE | 2019-03-05 20:33 | PC.NURSE ---
Pt's agitation was reported to the Doctor and is being addressed by the nurse
[2019-03-05] MEDS: LORazepam 1 MG TABLET PO (20:36)
--- NOTE | 2019-03-05 20:51 | PC.NURSE ---
Nurse gave pt meds. pt is laying down and relaxed. door is open and lights are off so pt can rest.
--- NOTE | 2019-03-05 21:01 | PC.NURSE ---
pt resting on bed, gave him ice water
--- NOTE | 2019-03-05 21:20 | PC.NURSE ---
pt is laying on bed relaxing, door is open and lights are off so pt can rest.
--- NOTE | 2019-03-05 21:31 | PC.NURSE ---
pt resting on bed, door is open to hallway
--- NOTE | 2019-03-05 21:45 | PC.NURSE ---
Pt resting on bed, MITER SAWYER gave pt water, door is open to [facility]
--- NOTE | 2019-03-05 22:00 | PC.NURSE ---
pt resting on bed, door open to hallway
--- NOTE | 2019-03-05 22:16 | PC.NURSE ---
pt up to use bathroom, pt back in bed resting, door open to [place]
--- NOTE | 2019-03-05 22:17 | PC.NURSE ---
[facility] has arrived for eval
--- NOTE | 2019-03-05 22:39 | PC.NURSE ---
DCR in room talking with pt
--- NOTE | 2019-03-05 22:47 | PC.NURSE ---
pt resting on bed, door is open to hallway
--- NOTE | 2019-03-05 23:01 | PC.NURSE ---
pt laying on bed relaxing, door is open to hallway
[2019-03-05 23:25] VITALS: BP 127/46; PULSE 82; RESP 20; TEMP 36.1
--- NOTE | 2019-03-05 23:45 | PC.NURSE ---
Patient sleeping in bed, repositioned onto his left side.
--- NOTE | 2019-03-06 00:30 | PC.NURSE ---
Patient asleep in room, repositioned independently onto his back.
[2019-03-06 00:55] VITALS: BP 125/81; PULSE 76; RESP 18; TEMP 36.3
--- NOTE | 2019-03-06 11:23 | PC.NURSE ---
Mother (Qian) called re: lost glasses. Not in ED patient belongings. [facility] I then found glasses. Message left on Qian's machine (listed next of kin) for her to pickling drum operator. Left at ED registration desk w/ both Qian's and pt's name on them.
== END 2019-03-06 01:01 | disposition home or self-care (01) ==
PROVIDERS: Emergency Medicine; Emergency Provider Emergency Medicine
DX: F10.929 Alcohol use, unspecified with intoxication, unspecified (principal); R41.82 Altered mental status, unspecified; R45.1 Restlessness and agitation; F32.89 Other specified depressive episodes
CPT/HCPCS: 36415; 80053; 80305; 80320; 81003; 84443; 85025; 96372; 99283; 99285; 99291; 99292; J1630

== ENCOUNTER 2019-04-03 21:16 | Emergency (ER) | payer OTHER, MEDICAID, SELFPAY ==
[2019-04-03 21:15] VITALS: BP 108/66; PULSE 80; RESP 14; TEMP 36.6; O2SAT 95; BMI 24.4
--- NOTE | 2019-04-03 21:43 | ED.PSYCH ---
HPI - Psych General Chief Complaint: Psychiatric Symptoms Stated Complaint: Suicidal Ideation Time Seen by Provider: 04/03/19 21:17 Source: patient and police Mode of arrival: ambulatory Limitations: no limitations History of Present Illness HPI Narrative: 48M nonsmoker with history of bipolar and alcoholism presents with Bill AGUIAR for CHEPE after suicidal ideation with plan and means. Patient has longstanding history of bipolar disorder and admittedly has been taking his medications. He lives in [place] but was from his a few months ago and since then has made his way here, to his mother's house. He was seen here in the end of February and was referred to [facility], he had 2 visits to the detox facility and prior to today had been clean for 15 days. His mother left the house for a few hours and he went looking for alcohol and found in the garage. When she returned she found him drunk and he was very upset. He stated he wanted to but was not specific with her. She obviously became upset and called police. Please see their paperwork for the details of their interaction but he apparently told them he wished to kill himself, had tried in the past (as evidenced by healed lacerations on both wrists) and had a knife hiding in his room where he intended to kill himself later tonight. PD searched his room and found a knife. Patient presents under the above-stated circumstances for medical clearance and psychiatric evaluation by [facility]ER[facility] S[facility]NCHEZ complaint: suicidal ideation and feels depressed Onset (ago): hour(s) Duration: constant History of same: Yes Relieving factors: none Exacerbating factors: alcohol Context: recent alcohol abuse and significant life stressor Associated psychiatric symptoms: depression and suicidal ideation Associated symptoms: denies other symptoms Treatments prior to arrival: none If self harm: admits thoughts of self harm and has plan Details of plan: see above Related Data Home Medications Medication Instructions Recorded Confirmed dextroamphetamine-amphetamine 60 mg PO QAM 04/04/19 04/04/19 [Adderall XR] Previous Rx's Medication Instructions Recorded fluoxetine 60 mg tablet 60 mg PO DAILY #30 tab 03/31/19 lamotrigine 100 mg tablet 100 mg PO DAILY #30 tab 03/31/19 Allergies Allergy/AdvReac Type Severity Reaction Status Date / Time No Known Drug Allergies Allergy Verified 04/03/19 21:34 Review of Systems Constitutional Denies chills, Denies fever(s), Denies lethargy and Denies weakness Eyes Denies change in vision, Denies eye discharge, Denies irritation and Denies loss of vision ENT Ears, Nose, Mouth, and Throat: Denies change in voice, Denies neck pain and Denies sore throat Cardiovascular Denies chest pain, Denies irregular heart rhythm, Denies lightheadedness, Denies palpitations, Denies dyspnea, Denies dyspnea on exertion and Denies orthopnea Respiratory Denies cough, Denies dyspnea, Denies dyspnea on exertion and Denies wheezing Gastrointestinal Gastrointestinal: Denies abdominal pain, Denies change in bowel habits, Denies diarrhea, Denies nausea and Denies vomiting Genitourinary Denies hematuria, Denies flank pain, Denies urinary incontinence and Denies urinary urgency Musculoskeletal Denies neck pain Integumentary/Breasts Denies pruritus, Denies erythema, Denies rash and Denies wounds Neurologic Denies confusion, Denies loss of vision and Denies weakness Psychiatric Denies anxiety, Denies confusion, Denies depression, Denies homicidal ideation and Reports suicidal ideation Endocrine Denies palpitations Hematologic/Lymphatic Denies easy bruising Allergic/Immunologic Denies wheezing PFSH Medical History Bipolar 1 disorder (Acute) Social History Smoking Status: Current every day smoker Social History Smoking Status: Current every day smoker Exam Narrative Exam Narrative: GENERAL: This is a well-nourished, well-developed patient, in mild distress. Poor eye contact HEAD: Atraumatic. Normocephalic. No temporal or scalp tenderness. EYES: Pupils equal round and reactive. Extraocular motions intact. No scleral icterus. No injection or drainage. ENT: Nose without bleeding, purulent drainage or septal hematoma. Throat without erythema, tonsillar hypertrophy or exudate. Uvula midline. Airway patent. NECK: Trachea midline. No JVD or lymphadenopathy. Supple, nontender, no meningeal signs. CARDIOVASCULAR: Regular rate and rhythm without murmurs, gallops, or rubs. RESPIRATORY: Clear to auscultation. Breath sounds equal bilaterally. No wheezes, rales, or rhonchi. GASTROINTESTINAL: Abdomen soft, non-tender, nondistended. No hepato-splenomegaly, or palpable masses. No guarding. EXTREMITIES: Healed lacerations on B/L wrists No clubbing, cyanosis, or edema. No joint tenderness, effusion, or edema noted. BACK: Nontender without deformity or crepitance. No flank tenderness. NEURO: AOx3. SKIN: No rash or erythema. 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 She is scared and believes he has every intention of hurting himself badly. She is happy to receive a call from [facility] Orders Ordered: Discontinued Medications Lorazepam (Ativan) 1 mg IM NOW ONE Stop: 04/03/19 21:25 Last Admin: 04/03/19 21:47 Dose: 1 mg Lorazepam (Ativan) 1 mg PO NOW ONE Stop: 04/04/19 07:59 Last Admin: 04/04/19 08:01 Dose: 1 mg Lorazepam (Ativan) 1 mg PO NOW ONE Stop: 04/04/19 11:41 Last Admin: 04/04/19 11:44 Dose: 1 mg Reevaluation(s) Reevaluation #1: patient is speaking clearly and walking with steady gait. He states he no longer wants to hurt himself and just wants to go home. It is my belief, especially after speaking with his mother that he is very likely just telling us what we want to hear. 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 He has a history of suicide attempt and was found to have ideation, plan, and means this evening. It is my intent to have the patient interviewed by [facility] for CHEPE. The patient does not think he needs help, wants no help Vital Signs - 8 hr 04/03/19 21:15 04/04/19 00:23 Temperature 97.8 F Pulse Rate 80 70 Respiratory Rate 14 16 Blood Pressure 108/66 Blood Pressure [Right Arm] 96/59 L Pulse Oximetry 95 93 MDM - Psych Lab Data Result diagrams: 04/03/19 21:45 04/03/19 21:45 Lab Results 04/03/19 04/03/19 04/03/19 Range/Units 21:45 21:45 21:45 WBC 4.7 (4.5-11.0) X10^3/uL RBC 4.35 L (4.5-5.9) X10^6/uL Hgb 14.3 (13.5-17.5) g/dL Hct 42.1 (41-53) % MCV 96.9 (80-100) fL MCH 32.9 (26-34) PG MCHC 33.9 (30-36) % RDW 14.6 (11.6-14.8) % Plt Count 254 (150-400) X10^3/uL Neut % (Auto) 31.4 L (50-75) % Lymph % (Auto) 56.5 H (25-40) % [place] % (Auto) 8.1 (3-14) % Eos % (Auto) 2.6 (2-4) % Baso % (Auto) 1.4 (0-2) % Neut # (Auto) 1500 (5115-7345) /uL Lymph # (Auto) 2600 (9590-5701) /uL [place] # (Auto) 400 (0-900) /uL Eos # (Auto) 100 (0-450) /uL Baso # (Auto) 100 (0-100) /uL Sodium 143 (137-145) mmol/L Potassium 3.7 (3.4-5.1) mmol/L Chloride 106 (98-107) mmol/L Carbon Dioxide 25 (22-32) mmol/L BUN 15 (9-20) mg/dL Creatinine 1.10 (0.66-1.25) mg/dL Estimated GFR > 60.0 (>60) mL/min BUN/Creatinine Ratio 13.6 (6-22) Glucose 107 H (70-100) mg/dL Calcium 9.7 (8.4-10.2) mg/dL Total Bilirubin 0.2 (0.2-1.3) mg/dL AST 24 (17-59) IU/L ALT 27 (21-72) IU/L Alkaline Phosphatase 67 (38-126) U/L Total Protein 6.6 (6.3-8.2) g/dL Albumin 4.0 (3.5-5.0) g/dL Globulin 2.6 (1.7-4.1) g/dL Albumin/Globulin Ratio 1.5 (1.0-2.8) TSH 1.10 (0.47-4.68) uIU/mL Urine Color Urine Appearance Urine pH (4.5-8.0) Ur Specific [place] (1.000-1.035) Urine Protein (Negative) Urine Glucose (UA) (Negative) g/dL Urine Ketones (NEGATIVE) Urine Occult Blood (Negative) Urine Nitrate (Negative) Urine Bilirubin (NEGATIVE) Urine Urobilinogen (0.2) E.U./dL Ur Leukocyte Esterase (NEGATIVE) Urine RBC (0-5/HPF) Urine WBC (0-5/HPF) Urine Bacteria (None) Hyaline Casts (None) Ur Culture Indicated? Urine Opiates Screen (Negative) Ur Oxycodone Screen (Negative) Urine Methadone Screen (Negative) Ur Barbiturates Screen (Negative) U Tricyclic Antidepress (Negative) Ur Phencyclidine Scrn (Negative) Ur Amphetamines Screen (Negative) U Methamphetamines Scrn (Negative) Ur MDMA Scrn (Ecstasy) (Negative) U Benzodiazepines Scrn (Negative) Urine Cocaine Screen (Negative) U Marijuana (THC) Screen (Negative) Ethyl Alcohol 198 mg/dL 04/04/19 04/04/19 04/04/19 Range/Units 02:23 02:23 02:58 WBC (4.5-11.0) X10^3/uL RBC (4.5-5.9) X10^6/uL Hgb (13.5-17.5) g/dL Hct (41-53) % MCV (80-100) fL MCH (26-34) PG MCHC (30-36) % RDW (11.6-14.8) % Plt Count (150-400) X10^3/uL Neut % (Auto) (50-75) % Lymph % (Auto) (25-40) % [place] % (Auto) (3-14) % Eos % (Auto) (2-4) % Baso % (Auto) (0-2) % Neut # (Auto) (7239-2308) /uL Lymph # (Auto) (2448-1414) /uL [place] # (Auto) (0-900) /uL Eos # (Auto) (0-450) /uL Baso # (Auto) (0-100) /uL Sodium (137-145) mmol/L Potassium (3.4-5.1) mmol/L Chloride (98-107) mmol/L Carbon Dioxide (22-32) mmol/L BUN (9-20) mg/dL Creatinine (0.66-1.25) mg/dL Estimated GFR (>60) mL/min BUN/Creatinine Ratio (6-22) Glucose (70-100) mg/dL Calcium (8.4-10.2) mg/dL Total Bilirubin (0.2-1.3) mg/dL AST (17-59) IU/L ALT (21-72) IU/L Alkaline Phosphatase (38-126) U/L Total Protein (6.3-8.2) g/dL Albumin (3.5-5.0) g/dL Globulin (1.7-4.1) g/dL Albumin/Globulin Ratio (1.0-2.8) TSH (0.47-4.68) uIU/mL Urine Color Yellow Urine Appearance Clear Urine pH 5.0 (4.5-8.0) Ur Specific [place] >=1.030 H (1.000-1.035) Urine Protein Negative (Negative) Urine Glucose (UA) Negative (Negative) g/dL Urine Ketones Trace H (NEGATIVE) Urine Occult Blood Negative (Negative) Urine Nitrate Negative (Negative) Urine Bilirubin Negative (NEGATIVE) Urine Urobilinogen 0.2 (0.2) E.U./dL Ur Leukocyte Esterase Negative (NEGATIVE) Urine RBC None seen (0-5/HPF) Urine WBC None seen (0-5/HPF) Urine Bacteria None seen (None) Hyaline Casts 1-5/lpf (None) Ur Culture Indicated? Cult not indicated Urine Opiates Screen Negative (Negative) Ur Oxycodone Screen Negative (Negative) Urine Methadone Screen Negative (Negative) Ur Barbiturates Screen Negative (Negative) U Tricyclic Antidepress Negative (Negative) Ur Phencyclidine Scrn Negative (Negative) Ur Amphetamines Screen Negative (Negative) U Methamphetamines Scrn Negative (Negative) Ur MDMA Scrn (Ecstasy) Negative (Negative) U Benzodiazepines Scrn Positive H (Negative) Urine Cocaine Screen Negative (Negative) U Marijuana (THC) Screen Positive H (Negative) Ethyl Alcohol 91 mg/dL Point of Care Testing Glucose POC 101 Discharge Plan Departure Patient Disposition: Xfer Psychiatric Hosp Clinical Impression: Bipolar 1 disorder Discharge Date/Time: 04/04/19 12:12 Interventions: ED Discharge Assessment Last Done: 04/04/19 12:26
[2019-04-03] MEDS: LORazepam 2 MG/ML INJ 1 MG IM (21:47)
[2019-04-03 21:57] LABS: Add Manual Diff / Slide Review NO; Basophils Absolute Auto 100 /uL (0-100); Basophils Percent Auto 1.4 % (0-2); Eosinophils Absolute Auto 100 /uL (0-450); Eosinophils Percent Auto 2.6 % (2-4); Hematocrit 42.1 % (41-53); Hemoglobin 14.3 g/dL (13.5-17.5); Lymphocytes Absolute Auto 2600 /uL (1100-4500); Lymphocytes Percent Auto 56.5 % (25-40); Mean Corpuscular HGB Conc 33.9 % (30-36); Mean Corpuscular Hemoglobin 32.9 PG (26-34); Mean Corpuscular Volume 96.9 fL (80-100); Monocytes Absolute Auto 400 /uL (0-900); Monocytes Percent Auto 8.1 % (3-14); Neutrophils Absolute Auto 1500 /uL (1500-7000); Neutrophils Percent Auto 31.4 % (50-75); Platelet Count 254 X10^3/uL (150-400); Red Blood Cell Count 4.35 X10^6/uL (4.5-5.9); Red Cell Distribution Width 14.6 % (11.6-14.8); White Blood Cell Count 4.7 X10^3/uL (4.5-11.0)
[2019-04-03 22:03] LABS: Alanine Aminotransferase 27 IU/L (21-72); Albumin Globulin Ratio 1.5 (1.0-2.8); Alkaline Phosphatase 67 U/L (38-126); Aspartate Aminotransferase 24 IU/L (17-59); BUN Creatinine Ratio 13.6 (6-22); Bilirubin Total 0.2 mg/dL (0.2-1.3); Blood Urea Nitrogen 15 mg/dL (9-20); Calcium 9.7 mg/dL (8.4-10.2); Carbon Dioxide 25 mmol/L (22-32); Chloride 106 mmol/L (98-107); Estimated Glomerular Filt Rate > 60.0 mL/min (>60); Ethanol (ETOH) 198 mg/dL; Globulin 2.6 g/dL (1.7-4.1); Glucose 107 mg/dL (70-100); HEMOLYSIS < 15 (0-50); Potassium 3.7 mmol/L (3.4-5.1); Sodium 143 mmol/L (137-145); Total Protein 6.6 g/dL (6.3-8.2)
--- NOTE | 2019-04-03 23:29 | PC.NURSE ---
Requested urine from the Pt. Pt sat up and was given a urinal in order to give a sample, I closed the door part way and Pt prceeded to lay down. when asked if he would urinate Pt said No and went back to sleep.
[2019-04-04 00:23] VITALS: BP 96/59; PULSE 70; RESP 16; O2SAT 93
--- NOTE | 2019-04-04 01:16 | PC.NURSE ---
Pt got up to uirinate upon prompting but states can't pee I gave him water and told him that I will come in every few min and encourage him to drink water to hydrate him. I reported to the Doctor and he ask me to bladder scan him.
--- NOTE | 2019-04-04 02:04 | PC.NURSE ---
I bladder scanned the Pt and got a reading of 291ml in his bladder. I asked Pt to try and urinate again. Pt attempted to urinate but stated I just am too tired to pee
[2019-04-04 02:35] LABS: Urine Amphetamines Negative (Negative); Urine Barbiturates Negative (Negative); Urine Benzodiazepines Positive (Negative); Urine Cocaine Negative (Negative); Urine MDMA Negative (Negative); Urine Methadone Negative (Negative); Urine Methamphetamines Negative (Negative); Urine Morphine/Opi cutoff 2000 Negative (Negative); Urine Oxycodone Negative (Negative); Urine Phencyclidine Negative (Negative); Urine Tetrahydrocannabinol Positive (Negative); Urine Tricyclic Antidepressant Negative (Negative)
[2019-04-04 02:42] LABS: Bacteria Urine None Seen; RBC Urine None Seen (0-5/HPF); WBC Urine None Seen (0-5/HPF)
[2019-04-04 02:43] LABS: Appearance Urine UA CLEAR; Bilirubin Urine UA NEGATIVE (NEGATIVE); Color Urine UA YELLOW; Glucose Urine UA NEGATIVE (Negative); Ketones Urine UA TRACE (NEGATIVE); Leukocyte Esterase Urine UA NEGATIVE (NEGATIVE); Nitrite Urine UA NEGATIVE (Negative); Occult Blood Urine UA NEGATIVE (Negative); Protein Urine UA NEGATIVE (Negative); Specific Gravity Urine UA >=1.030 (1.000-1.035); Urobilinogen Urine UA 0.2 E.U./dL (0.2)
[2019-04-04 03:13] LABS: Hyaline Casts Urine 1-5/LPF
[2019-04-04 03:14] LABS: Culture Indicated Urine Cult Not Indicated
[2019-04-04 03:18] LABS: Ethanol (ETOH) 91 mg/dL
[2019-04-04 06:30] VITALS: BP 120/72; PULSE 80; RESP 20; O2SAT 97
--- NOTE | 2019-04-04 07:14 | PC.NURSE ---
Obtained patient care. Patient resting in position of comfort. Meal tray ordered.
--- NOTE | 2019-04-04 07:56 | PC.NURSE ---
Meal tray provided to patient. Patient requesting ativan and to know when he gets to leave. Updated patient that RESOURCE TEACHER would be here shortly to talk to him and that his plan of care would be determined after his evaluation. Patient agreeable at this time. Discussed with provider patients request for ativan. Provider will order Ativan for patient.
[2019-04-04] MEDS: LORazepam 0.5 MG TABLET 1 MG PO ×2 (08:01→11:44)
--- NOTE | 2019-04-04 09:26 | PC.NURSE ---
pt laying on stretcher. pt speaking with dwayne martinez. does not appear to be distress. no complaints at this time.
--- NOTE | 2019-04-04 09:38 | PC.NURSE ---
0930- Resting comfortably in bed eyes closed with even/unlabored RR.
[2019-04-04 11:24] VITALS: BP 129/86; PULSE 80; RESP 17; TEMP 37.1; O2SAT 97
--- NOTE | 2019-04-04 11:46 | PC.NURSE ---
Pt requesting to take home meds of fluoxetine 60 mg and lamotrigine [address] Neal who states ok for pt to take meds from home supply. Administered both with one time dose of ativan pt requested for anxiety. Currently he is sitting up at the edge of the stretcher eating lunch. Calm and cooperative, verbalizing understanding re plan of care.
--- NOTE | 2019-04-04 12:11 | PC.NURSE ---
Addendum entered by Mohsen Forte R.N. 04/04/19 12:19: Called to Elvira RN [phone]. Report given. Original Note: [facility] staff here. Pt transferred from bed to stretcher independently with SBA. No acute distress. Belongings gathered and sent with ambulance staff. D/c packet and ambulance packet given to staff. Pt left at 1212.
== END 2019-04-04 12:12 ==
PROVIDERS: Emergency Medicine; Emergency Provider Emergency Medicine
DX: F31.9 Bipolar disorder, unspecified (principal)
CPT/HCPCS: 36415; 51798; 80053; 80305; 80320; 81001; 82962; 84443; 85025; 96372; 99285; J2060

== ENCOUNTER 2019-04-27 07:13 | Emergency (ER) | payer OTHER, MEDICAID, SELFPAY ==
[2019-04-27 07:14] VITALS: BP 155/91; PULSE 87; RESP 16; TEMP 36.2; O2SAT 94; BMI 25.7
[2019-04-27 07:19] VITALS: PULSE 86; RESP 16; O2SAT 94
[2019-04-27] MEDS: ALBUTEROL 2.5 MG/3 ML NEB (ADULT) INH (07:19)
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
[2019-04-27 08:27] VITALS: BP 146/84; PULSE 82; RESP 16; O2SAT 96
== END 2019-04-27 08:28 | disposition home or self-care (01) ==
LOC: ED 08:25
PROVIDERS: Emergency Provider Emergency Medicine
DX: J45.901 Unspecified asthma with (acute) exacerbation (principal)
CPT/HCPCS: 71046; 94640; 99282; 99283; J7613